=== PATIENT | female | born 1995 | race Two or more races ===

== ENCOUNTER 2024-10-31 09:26 | Emergency (ER) | payer OTHER ==
[~2024-10-31] VITALS: Ht 167.6 cm; Wt 97.5 kg
[2024-10-31] MEDS ORDERED: SYNTHROID75 MCG (09:40)
[2024-10-31 09:41] VITALS: BP 133/89; O2SAT 98
[2024-10-31 10:36] LABS: BASO % 1.0 % (0.1-1.2); EOS # 0.32 (0.04-0.54); EOS % 3.9 % (0.7-7.0); LYMPH # 1.66 (1.18-3.74); LYMPH % 20.0 % (19.3-53.1); MEAN PLATELET VOLUME 9.20 fl (9.4-12.4); MONO # 0.73 (0.24-0.82); MONO % 8.8 % (4.7-12.5); NEUT # 5.36 (1.56-6.13); NEUT % 64.6 % (34.0-71.1); RED CELL DISTRIBUTION WIDTH 13.5 % (11.6-14.4)
== END 2024-10-31 14:51 | disposition home or self-care (01) ==
LOC: ER 09:26
PROVIDERS: General Practice
DX: O20.8 Other hemorrhage in early pregnancy (principal); Z3A.09 9 weeks gestation of pregnancy; E03.8 Other specified hypothyroidism; Z91.013 Allergy to seafood